=== PATIENT | female | born 1960 | race African-American/Black ===

== ENCOUNTER 2016-06-21 21:11 | Emergency (ER) | payer OTHER ==
[~2016-06-21] VITALS: Ht 160 cm; Wt 107.5 kg
[2016-06-21 22:03] VITALS: BP 132/91
--- NOTE | 2016-06-21 22:26 | PHYS DOC ---
Past Medical History Past Medical History: No Pertinent History Past Surgical History: , Hysterectomy Alcohol Use: None Drug Use: None Adult General Chief Complaint Chief Complaint: EYE PROBLEMS [facility] HPI Patient is a 56 year old female who presents the emergency room today with complaint of bilateral eye irritation for approximately one and a half hours secondary to accidentally placing makeup remover in her contact eye case and then placing the contacts in her eye. Patient states that she was having some irritation to her eyes. She denies any burning sensation or visual difficulties. She states that she removed her contacts and flushed her eyes for approximately 5 minutes. She states that she still has body irritation but denies eye pain. Review of Systems Review of Systems Constitutional: Denies fever or chills [] Eyes: Denies change in visual acuity, redness, or eye pain [] HENT: Denies nasal congestion or sore throat [] Respiratory: Denies cough or shortness of breath [] Cardiovascular: No additional information not addressed in HPI [] GI: Denies abdominal pain, nausea, vomiting, bloody stools or diarrhea [] : Denies dysuria or hematuria [] Musculoskeletal: Denies back pain or joint pain [] Integument: Denies rash or skin lesions [] Neurologic: Denies headache, focal weakness or sensory changes [] Endocrine: Denies polyuria or polydipsia [] Allergies Allergies Allergies Coded Allergies Type Severity Reaction Last Updated Verified prochlorperazine Allergy Intermediate 3 No aspirin Allergy Mild Nausea and Vomiting 07/30/14 No morphine Allergy Mild Nausea and Vomiting 07/30/14 No sulfamethoxazole Allergy Mild Nausea and Vomiting 07/30/14 No trimethoprim Allergy Mild Nausea and Vomiting 07/30/14 No Physical Exam Physical Exam Constitutional: Well developed, well nourished, no acute distress, non-toxic appearance. [] HENT: Normocephalic, atraumatic, bilateral external ears normal, oropharynx moist, no oral exudates, nose normal. [] Eyes: PERRLA, EOMI, conjunctiva normal, no discharge. There is no periorbital swelling or discoloration. Patient's bilateral upper and lower lids are normal in appearance. Tear film is clear. There is mild subconjunctival injection bilaterally. Anterior chamber is deep, clear and quiet. Neck: Normal range of motion, no tenderness, supple, no stridor. [] Cardiovascular:Heart rate regular rhythm, no murmur [] Lungs & Thorax: Bilateral breath sounds clear to auscultation [] Abdomen: Bowel sounds normal, soft, no tenderness, no masses, no pulsatile masses. [] Skin: Warm, dry, no erythema, no rash. [] Back: No tenderness, no CVA tenderness. [] Extremities: No tenderness, no cyanosis, no clubbing, ROM intact, no edema. [] Neurologic: Alert and oriented X 3, normal motor function, normal sensory function, no focal deficits noted. [] Psychologic: Affect normal, judgement normal, mood normal. [] Current Patient Data Vital Signs Vital Signs Date Time Temp Pulse Resp B/P Pulse Ox O2 Delivery O2 Flow Rate FiO2 06/21/16 22:03 97.6 91 16 132/91 95 Room Air 97.6 EKG EKG [] Radiology/Procedures Radiology/Procedures [] Course & Med Decision Making Course & Med Decision Making Pertinent Labs and Imaging studies reviewed. (See chart for details) [] Dragon Disclaimer Dragon Disclaimer This electronic medical record was generated, in whole or in part, using a voice recognition dictation system. Departure Departure Impression: Primary Impression: Chemical conjunctivitis Disposition: HOME, SELF-CARE Condition: GOOD Referrals: NILS GRANADO (PCP) Patient Instructions: Conjunctivitis, Chemical, [id number] Additional Instructions: 1. technical support technician a bottle of Naphcon A views per the instructions on the bottle. 2. Do not place contacts back in your eye for at least the next 3 days. 3. Review the discharge instructions provided for self-care and reasons to return the emergency department. 4. Call your eye doctor tomorrow to schedule follow-up appointment for reevaluation by Monday. IDALIA PENDLETON Jun 21, 2016 22:26
== END 2016-06-21 22:31 | disposition home or self-care (01) ==
LOC: ER 21:11
DX: H10.213 Acute toxic conjunctivitis, bilateral (principal); Z90.710 Acquired absence of both cervix and uterus; Z88.6 Allergy status to analgesic agent; Z88.5 Allergy status to narcotic agent; Z88.2 Allergy status to sulfonamides; Z88.8 Allergy status to other drugs, medicaments and biological substances
CPT/HCPCS: 99282

== ENCOUNTER → 2016-08-09 | Day surgery (SDC) | payer OTHER ==
[~2016-08-09] MED LIST: FENTANYL PF 100 MCG/2 ML VIAL. IV PRN; FLUT16SP NS; IV RINGERS,LACTATED 1000ML 1,000 ML IV SCH; LIDOCAINE 1% 1 ML SYRINGE. ID PRN; LIDOCAINE 2% PF Vial for OR 5 ML VIAL. ONE; METH80VI IJ; ONDANSETRON PF 4 MG/2 ML VIAL. IV PRN; PROPOFOL 40 ML IV ONE; SUMA50TA3 PO; TOLT2CAP PO; VENTOLIN HFA18 GM INH; [UNRECOGNIZED DRUG - CODE] IJ
[2016-08-09 17:31] VITALS: BP 128/80
--- NOTE | 2016-08-11 12:46 | PATHOLOGY ---
PATHOLOGY REPORT * * * * * * * * FINAL DIAGNOSIS: Esophageal biopsy, distal esophagus: - Segments of benign squamous esophageal mucosa identified. COMMENT: Sections of the distal esophageal biopsy reveal segments of benign squamous esophageal mucosa, which may focally be slightly hyperplastic. There is no evidence of Dumont's change, dysplasia or malignancy. (JPM:csd; d/t: 08/11/2016) REPORT ELECTRONICALLY SIGNED BY: Bob Felipe M.D. DATE/TIME: 08/11/2016 12:45 * * * * * * * * GROSS PATHOLOGY: Received in formalin labeled "Maira Ruvalcaba, distal esophagus biopsy," are 2 segments of winchester soft tissue measuring 0.3 x 0.2 x 0.2 cm in aggregate dimensions and ranging from 0.2 to 0.3 cm in maximum dimension. The specimen is submitted entirely in cassette A1. (KAH; 08/10/2016) INITIAL CPT CODE(S): A; 41338 Professional services performed by [facility] [address] Technical services performed by [facility] at [address] [place] [address]. SPECIMEN(S) RECEIVED: A.Distal esophagus biopsy CLINICAL HISTORY: Heartburn, screening colon PATIENT: MAIRA RUVALCABA /AGE: 902/06/1960 (Age: 56) PATIENT #: [id number] ALT CASE #: SPECIMEN COLLECTION DATE: 08/09/2016 SPECIMEN RECEIVED DATE: 08/10/2016 [facility] - [address] [place] [address] - PHONE: [phone] * * * END OF REPORT * * *
== END ==
LOC: ENDOS 15:28
PROVIDERS: ATTEND Internal Medicine Gastroenterology
DX: K64.0 First degree hemorrhoids (principal); K57.30 Diverticulosis of large intestine without perforation or abscess without bleeding; K21.0 Gastro-esophageal reflux disease with esophagitis; E78.00 Pure hypercholesterolemia, unspecified; J45.909 Unspecified asthma, uncomplicated; E66.9 Obesity, unspecified; F41.9 Anxiety disorder, unspecified; Z90.710 Acquired absence of both cervix and uterus
CPT/HCPCS: 43239; 45378; J2704

== ENCOUNTER → 2016-08-30 | Outpatient (CLI) | payer OTHER ==
[2016-08-09 17:31] VITALS: BP 128/80
[~2016-08-30] MED LIST changes: +BARIUM SULFATE 105% 1,900 ML SUSP PO ONE; -FENTANYL PF 100 MCG/2 ML VIAL. IV PRN; -IV RINGERS,LACTATED 1000ML 1,000 ML IV SCH; -LIDOCAINE 1% 1 ML SYRINGE. ID PRN; -LIDOCAINE 2% PF Vial for OR 5 ML VIAL. ONE; -ONDANSETRON PF 4 MG/2 ML VIAL. IV PRN; -PROPOFOL 40 ML IV ONE
--- NOTE | 2016-08-30 09:07 | RAD ---
Barium enema, 08/30/2016: History: Incomplete colonoscopy The preliminary abdominal image demonstrates a nonspecific gas pattern. The colon was filled with barium in retrograde manner with reflux into the terminal ileum. 2.3 minutes of fluoroscopy time was utilized. 12 fluoroscopic spot images were recorded. The colon is quite redundant. Multiple diverticula are present, most numerous in the sigmoid and descending colon. No paracolonic inflammatory process is seen. Several small filling defects within the barium column appear to be due to fecal debris. No constricting colonic lesion or mass was identified. IMPRESSION: 1. Colonic diverticulosis. 2. Otherwise negative barium enema.
== END | disposition home or self-care (01) ==
LOC: RAD 07:35
PROVIDERS: ATTEND Internal Medicine Gastroenterology
DX: Z91.19 Patient's noncompliance with other medical treatment and regimen (principal)
CPT/HCPCS: 74270

== ENCOUNTER → 2016-11-22 | Outpatient (CLI) | payer OTHER ==
[2016-08-09 17:31] VITALS: BP 128/80
[~2016-11-22] MED LIST changes: -BARIUM SULFATE 105% 1,900 ML SUSP PO ONE; +KETO15VI18 IJ; -[UNRECOGNIZED DRUG - CODE] IJ
--- NOTE | 2016-11-22 14:30 | RAD ---
DATE: November 22, 2016 EXAM: DIGITAL SCREEN BILAT W/CAD HISTORY: Screening study. COMPARISON: 2013 and 2015 This study was interpreted with the benefit of Computerized Aided Detection (CAD). FINDINGS: The breast parenchyma is primarily fatty replaced. There are no dominant suspicious masses, suspicious microcalcifications or evidence of architectural distortion. IMPRESSION: No mammographic indicators for malignancy. BI-RADS CATEGORY: 1 NEGATIVE RECOMMENDED FOLLOW-UP: 12M 12 MONTH FOLLOW-UP PQRS compliance statement: Patient information was entered into a reminder system with a target due date November 23, 2017 for the next mammogram. Mammography is a sensitive method for finding small breast cancers, but it does not detect them all and is not a substitute for careful clinical examination. A negative mammogram does not negate a clinically suspicious finding and should not result in delay in biopsying a clinically suspicious abnormality. "Our facility is accredited by the [employer] Mammography Program." The patient's breast density may affect the ability of mammography to detect breast cancer. There are 4 categories of breast density, A, B, C and D. Breast density A means that most of the breast tissue is replaced with adipose tissue and therefore is not dense. Breast density B means that the breast tissue is mildly dense and scattered. Breast density C means that the breast tissue is heterogeneously dense. Breast density D means that the breast tissue is very dense. Breast densities especially C and D may decrease the sensitivity of mammography to detect breast cancer. Therefore, the patient may benefit from 3-D breast mammography (3D breast tomography) as a part of their screening mammogram. Insurance may or may not pay for this additional imaging. The patient's breast density based on today's mammogram is category A.
== END | disposition home or self-care (01) ==
LOC: MAMMO 12:20
DX: Z12.31 Encounter for screening mammogram for malignant neoplasm of breast (principal)
CPT/HCPCS: G0202; 77067

== ENCOUNTER → 2017-03-14 | Outpatient (CLI) | payer OTHER ==
[2016-08-09 17:31] VITALS: BP 128/80
[2017-03-14 14:00] LABS: BASO # 0.1 x10^3/uL (0.0-0.2); BASO % 1 % (0-3); EOS % 2 % (0-3); HEMATOCRIT 40.6 % (36.0-47.0); HEMOGLOBIN 13.5 g/dL (12.0-15.5); LYMPH # 3.4 x10^3/uL (1.0-4.8); LYMPH % 42 % (24-48); MEAN CORPUSCULAR HEMOGLOBIN 29 pg (25-35); MEAN CORPUSCULAR HGB CONC 33 g/dL (31-37); MEAN CORPUSCULAR VOLUME 86 fL (79-100); MONO % 6 % (0-9); NEUT % 49 % (31-73); PLATELET COUNT 220 x10^3/uL (140-400); RED BLOOD COUNT 4.73 x10^6/uL (3.50-5.40); RED CELL DISTRIBUTION WIDTH 14.5 % (11.5-14.5); WHITE BLOOD COUNT 8.2 x10^3/uL (4.0-11.0)
[2017-03-14 14:08] LABS: PROTHROMBIN TIME PATIENT 12.3 SEC (11.7-14.0)
[2017-03-14 14:55] LABS: BARBITURATES NEG (NEG); BENZODIAZEPINES NEG (NEG); CANNABINOIDS NEG (NEG); COCAINE NEG (NEG); METHADONE NEG (NEG); OPIATES NEG (NEG); PHENCYCLIDINE NEG (NEG)
== END | disposition home or self-care (01) ==
LOC: LAB 13:35
PROVIDERS: ATTEND Psychiatry & Neurology Neurology
DX: G93.2 Benign intracranial hypertension (principal)
CPT/HCPCS: 36415; 80307; 82947; 85025; 85610; 85651; G0479

== ENCOUNTER → 2017-06-01 | Outpatient (CLI) | payer OTHER ==
[2017-06-01] MEDS: GADOBUTROL 10 MMOL/10 ML VIAL IV (09:33)
== END | disposition home or self-care (01) ==
LOC: MRI 08:22
DX: G93.2 Benign intracranial hypertension (principal); R42 Dizziness and giddiness
CPT/HCPCS: 70553; A9585

== ENCOUNTER 2017-06-03 16:51 | Emergency (ER) | payer OTHER ==
[2017-06-03 17:30] LABS: BILIRUBIN,URINE NEGATIVE (NEG); CLARITY,URINE CLOUDY; COLOR,URINE YELLOW; GLUCOSE,URINE NEGATIVE (NEG); NITRITE,URINE NEGATIVE (NEG); PROTEIN,URINE NEGATIVE (NEG-TRACE); UROBILINOGEN,URINE 0.2 mg/dL (0.2 mg/dL)
[2017-06-03 17:37] LABS: BACTERIA,URINE FEW /HPF (0-FEW); RBC,URINE 0 /HPF (0-2); SQUAMOUS EPITHELIAL CELL,UR MOD /LPF; WBC,URINE OCC /HPF (0-4)
== END 2017-06-03 17:58 | disposition home or self-care (01) ==
LOC: ER 16:51
DX: R30.0 Dysuria (principal); M54.5 Low back pain; Z90.710 Acquired absence of both cervix and uterus; Z88.2 Allergy status to sulfonamides; Z88.5 Allergy status to narcotic agent; Z88.6 Allergy status to analgesic agent; Z88.1 Allergy status to other antibiotic agents; Z88.8 Allergy status to other drugs, medicaments and biological substances
CPT/HCPCS: 81001; 87086; 99284

== ENCOUNTER → 2017-09-19 | Outpatient (CLI) | payer OTHER ==
[2017-09-19 16:00] LABS: ADD MAN DIFF? NO
[2017-09-19 16:05] LABS: BASO % 0 % (0-3); EOS # 0.2 x10^3/uL (0.0-0.7); EOS % 2 % (0-3); HEMATOCRIT 39.2 % (36.0-47.0); HEMOGLOBIN 13.5 g/dL (12.0-15.5); LYMPH # 3.7 x10^3/uL (1.0-4.8); LYMPH % 34 % (24-48); MEAN CORPUSCULAR HEMOGLOBIN 30 pg (25-35); MEAN CORPUSCULAR HGB CONC 34 g/dL (31-37); MEAN CORPUSCULAR VOLUME 86 fL (79-100); MONO # 0.8 x10^3/uL (0.0-1.1); MONO % 7 % (0-9); NEUT # 6.2 x10^3uL (1.8-7.7); NEUT % 57 % (31-73); PLATELET COUNT 247 x10^3/uL (140-400); RED BLOOD COUNT 4.56 x10^6/uL (3.50-5.40); RED CELL DISTRIBUTION WIDTH 14.9 % (11.5-14.5); WHITE BLOOD COUNT 10.9 x10^3/uL (4.0-11.0)
[2017-09-19 16:18] LABS: GLUCOSE 102 mg/dL (70-99)
[2017-09-19 16:20] LABS: INR 1.1 (0.8-1.1); PROTHROMBIN TIME PATIENT 13.8 SEC (11.7-14.0)
[2017-09-19 18:13] LABS: SEDIMENTATION RATE 22 (0-25)
== END | disposition home or self-care (01) ==
LOC: LAB 15:43
DX: G93.2 Benign intracranial hypertension (principal)
CPT/HCPCS: 36415; 82947; 85025; 85610; 85651

== ENCOUNTER → 2018-01-23 | Outpatient (CLI) | payer OTHER ==
[2017-06-03 17:22] VITALS: BP 131/73
[~2018-01-23] MED LIST changes: +NITR100C62 PO
--- NOTE | 2018-01-23 13:58 | RAD ---
DATE: 01/23/2018 EXAM: MAMMO PONCE SCREENING BILATERAL HISTORY: Routine screening COMPARISON: 11/22/2016 This study was interpreted with the benefit of Computerized Aided Detection (CAD). The breast parenchyma shows scattered fibroglandular densities. Breast parenchyma level B. FINDINGS: 2-D and 3-D tomosynthesis imaging was performed in CC and MLO projections. A small 10 mm nodule is noted anteromedially in the left breast as best seen on CC tomosynthesis image #24. It lies at approximately the 8:00 location 2 cm from the nipple. It was not clearly demonstrated on previous 2-D images, however, that may be due to technical factors. No spiculated mass or architectural distortion is seen. No suspicious microcalcifications are evident. IMPRESSION: Small left breast nodule. Sonographic evaluation is suggested. BI-RADS CATEGORY: 0 INCOMPLETE: NEEDS ADDITIONAL IMAGING EVALUATION AND/OR PRIOR MAMMOGRAMS FOR COMPARISON. RECOMMENDED FOLLOW-UP: ADD ADDITIONAL IMAGING PQRS compliance statement: Patient information was entered into a reminder system with a target due date for the next mammogram. Mammography is a sensitive method for finding small breast cancers, but it does not detect them all and is not a substitute for careful clinical examination. A negative mammogram does not negate a clinically suspicious finding and should not result in delay in biopsying a clinically suspicious abnormality. "Our facility is accredited by the [employer] Mammography Program."
== END | disposition home or self-care (01) ==
LOC: MAMMO 10:43
DX: Z12.31 Encounter for screening mammogram for malignant neoplasm of breast (principal); E78.00 Pure hypercholesterolemia, unspecified; K21.0 Gastro-esophageal reflux disease with esophagitis; J45.909 Unspecified asthma, uncomplicated; Z90.710 Acquired absence of both cervix and uterus; Z88.1 Allergy status to other antibiotic agents; Z88.2 Allergy status to sulfonamides; Z88.5 Allergy status to narcotic agent; Z88.6 Allergy status to analgesic agent; Z88.8 Allergy status to other drugs, medicaments and biological substances
CPT/HCPCS: 77063; 77067

== ENCOUNTER → 2018-06-15 | Outpatient (CLI) | payer OTHER ==
[2017-06-03 17:22] VITALS: BP 131/73
--- NOTE | 2018-06-15 11:54 | RAD ---
DATE: 06/15/2018 EXAM: MAMMO PONCE HILDA LT, BREAST LEFT HISTORY: 6 month follow-up COMPARISON: 01/23/2018 This study was interpreted with the benefit of Computerized Aided Detection (CAD). Breast Density: SCATTERED The breast parenchyma shows scattered fibroglandular densities. Breast parenchyma level B. FINDINGS: 2-D and 3-D tomosynthesis imaging was performed in CC and MLO projections. A 10 mm nodule is again noted anteromedially in the left breast on CC total image #20. It is unchanged since the previous exam. There is a slightly smaller, smooth subareolar nodule best seen on oblique tomosynthesis image #60. In retrospect this was also present on the previous study and appears unchanged. No new or enlarging breast densities are seen. No suspicious microcalcifications are evident. Left breast ultrasound, 06/15/2018: We first targeted the 7:00 location approximately 2 cm from the nipple where a nodule was seen on the 01/25/2018 study. This elongated nodule is redemonstrated. It has shown no definite change in size. It measures 7-8 mm in greatest length. It is wider than tall. Its margins are predominant smooth. It probably represents a small fibroadenoma or complicated cyst. We then scanned the retroareolar region. Numerous small ducts are present. The small benign-appearing cyst seen on the previous ultrasound exam was not visualized on today's study. No new abnormality is detected. IMPRESSION: Probably benign left breast nodules as described above. Follow-up bilateral mammography and left breast ultrasound in 6 months is suggested. BI-RADS CATEGORY: 3 PROBABLY BENIGN FINDING(S)-SHORT INTERVAL FOLLOW-UP SUGGESTED RECOMMENDED FOLLOW-UP: 6M 6 MONTH FOLLOW-UP PQRS compliance statement: Patient information was entered into a reminder system with a target due date for the next mammogram. Mammography is a sensitive method for finding small breast cancers, but it does not detect them all and is not a substitute for careful clinical examination. A negative mammogram does not negate a clinically suspicious finding and should not result in delay in biopsying a clinically suspicious abnormality. "Our facility is accredited by the [employer] Mammography Program."
== END | disposition home or self-care (01) ==
LOC: MAMMO 09:47
DX: N63.23 Unspecified lump in the left breast, lower outer quadrant (principal)
CPT/HCPCS: 76641; 77065; G0279; 77061

== ENCOUNTER → 2019-01-29 | Outpatient (CLI) | payer OTHER ==
[2017-06-03 17:22] VITALS: BP 131/73
--- NOTE | 2019-01-29 11:08 | RAD ---
DATE: 01/29/2019 EXAM: MAMMO PONCE CULPAT, BREAST LEFT HISTORY: Probably benign left breast mass COMPARISON: Left breast mammogram 06/15/2018, left breast ultrasound 06/15/2018, left breast ultrasound 01/25/2018, bilateral mammogram 01/23/2018, 11/22/2016 This study was interpreted with the benefit of Computerized Aided Detection (CAD). Breast Density: FATTY The breast parenchyma is primarily fatty replaced. Breast parenchyma level density A. FINDINGS: Left breast: There is a stable mass in the anterior medial left breast. There are no suspicious medical stations, masses or areas of architectural distortion. Targeted sonographic evaluation of the left breast was performed at the 7:00 position, 2 cm from the nipple. There is a circumscribed hypoechoic mass with posterior acoustic enhancement. Internal debris is suspected. Findings most favor a complicated cyst. This finding is stable dating at 01/25/2018. Findings favor benign etiology. Nonenlarged, morphologically normal lymph nodes are identified in the left axilla. Right breast: There are no suspicious medical calcifications, masses or areas of architectural distortion. IMPRESSION: 1. Benign findings of the left breast, described in detail above. 2. Negative right mammogram. BI-RADS CATEGORY: 2 BENIGN FINDING(S) RECOMMENDED FOLLOW-UP: 12M 12 MONTH FOLLOW-UP PQRS compliance statement: Patient information was entered into a reminder system with a target due date 01/30/2020 for the next mammogram. Mammography is a sensitive method for finding small breast cancers, but it does not detect them all and is not a substitute for careful clinical examination. A negative mammogram does not negate a clinically suspicious finding and should not result in delay in biopsying a clinically suspicious abnormality. "Our facility is accredited by the [employer] Mammography Program."
== END | disposition home or self-care (01) ==
LOC: MAMMO 09:42
DX: R92.8 Other abnormal and inconclusive findings on diagnostic imaging of breast (principal); N64.89 Other specified disorders of breast
CPT/HCPCS: 76641; 77066; G0279; 77062

== ENCOUNTER → 2020-02-18 | Outpatient (CLI) | payer OTHER ==
[2017-06-03 17:22] VITALS: BP 131/73
--- NOTE | 2020-02-19 17:56 | RAD ---
BILATERAL SCREENING MAMMOGRAM, 3-D History: Routine screening. Comparison: 01/29/2019, 01/23/2018, 2017, 11/19/2005.. Technique: MLO and CC digital tomosynthesis (3D) images obtained. Radiologist reviewed these images on dedicated workstation. Findings: Breast Tissue Density B : There are scattered areas of fibroglandular density. There are no dominant masses, suspicious microcalcifications, or architectural distortion. IMPRESSION: No mammographic evidence of malignancy. Recommend routine screening. BI-RADS category 1: Negative. The images were reviewed with computer-aided detection. Patient information is entered into reminder system with a target due date for the next screening mammogram. Mammography is the most sensitive method for finding small breast cancers, but it does not detect them all and is not a substitute for careful clinical examination. A negative mammogram does not negate a clinically suspicious finding and should not result in delay in biopsying a clinically suspicious abnormality. "Our facility is accredited by the [employer] Mammography Program." Electronically signed by: Santigao Novoa MD (02/19/2020 5:53 PM) [facility]
== END | disposition home or self-care (01) ==
LOC: MAMMO 08:43
PROVIDERS: ATTEND Family Medicine
DX: Z12.31 Encounter for screening mammogram for malignant neoplasm of breast (principal)
CPT/HCPCS: 77063; 77067

== ENCOUNTER → 2021-03-23 | Outpatient (CLI) | payer OTHER ==
[2017-06-03 17:22] VITALS: BP 131/73
--- NOTE | 2021-03-23 17:01 | RAD ---
Bilateral digital screening mammogram to include digital breast tomosynthesis (3-D mammography) 03/23 CLINICAL HISTORY: Screening study. Digital MLO and CC mammograms of both breasts were obtained. Additionally digital breast tomosynthesi s images (3-D mammography) of both breasts in the CC and MLO projections were obtained. Comparison studies are dated 02/18/2020, 01/29/2019 and 01/23/2018. The breast parenchyma is composed of scattered fibroglandular densities which could obscure a lesion on mammography (breast density B). No spiculated mass is seen. No malignant appearing calcification o r area of architectural distortion is noted. Digital breast tomosynthesis images demonstrate no spiculated mass. No malignant appearing calcificat ion is seen. Impression: BI-RADS Category 1: Negative. There is no mammographic evidence of malignancy. Routine y early screening mammography is recommended for follow-up. This examination was reviewed with the aid of computer-aided detection. A mammogram does not have 100% sensitivity and therefore a negative imaging study should not delay fu rther work up of a suspicious abnormality. Patient information is entered into the reminder system with a target due date for the next screening mammogram of 03/23/2022. "Our facility is accredited by the [employer] Mammography Program." Electronically signed by: Mart Sutton MD (03/23/2021 4:58 PM) [id number]
== END ==
LOC: MAMMO 09:03
PROVIDERS: ATTEND Internal Medicine
DX: Z12.31 Encounter for screening mammogram for malignant neoplasm of breast (principal)
CPT/HCPCS: 77063; 77067